=== PATIENT | male | born 1960 | race Caucasian/White ===

== ENCOUNTER 2023-03-22 10:12 | Outpatient (CLI) | payer OTHER, SELFPAY ==
[2023-03-22 18:01] LABS: Basophils Percent Auto 0.6 % (0.2-1.2); Eosinophils Absolute Auto 0.1 K/mm3 (0-0.3); Eosinophils Percent Auto 1.8 % (0-4.4); Hematocrit 44.6 % (42.0-52.0); Hemoglobin 14.3 g/dL (14.0-18.0); Immature Granulocyte Absolute 0.02 K/mm3 (0.00-0.031); Immature Granulocyte Percent A 0.3 % (0-0.5); Mean Corpuscular HGB Conc 32.1 g/dl (32-36); Mean Corpuscular Hemoglobin 31.2 pg (26-34); Mean Corpuscular Volume 97.4 fl (80-100); Mean Platelet Volume 11.4 fl (7.4-10.4); Monocytes Absolute Auto 0.6 K/mm3 (0.1-0.6); Monocytes Percent Auto 9.9 % (2.6-8.5); Neutrophils Percent Auto 63.4 % (45.5-73.1); Platelet Count Result 187 k/mm3 (150-375); Red Blood Count 4.58 M/mm3 (4.6-6.20); Red Cell Distribution Width 12.3 % (11.5-14.5); White Blood Count 6.3 K/mm3 (4.5-10.0)
[2023-03-22 18:26] LABS: Alanine Aminotransferase 53 U/L (6-50); Albumin Level 4.1 g/dL (3.5-5.1); Alkaline Phosphatase 84 U/L (38-126); Anion Gap 5 mmol/L (8-16); Aspartate Amino Transferase 56 U/L (17-59); Bilirubin,Total 1.6 mg/dL (0.2-1.3); Blood Urea Nitrogen 20 mg/dL (9-20); Calcium 9.8 mg/dL (8.4-10.2); Carbon Dioxide 31 mmol/L (22-30); Chloride 101 mmol/L (98-107); Cholesterol 219 mg/dL (0-200); Estimated Glomerular Filt Rate > 60; Glucose 102 mg/dL (65-110); HDL Direct 59 mg/dL; Potassium 4.6 mmol/L (3.4-5.0); Sodium 137 mmol/L (137-145); Triglycerides 97 mg/dL (<150)
[2023-03-22 18:39] LABS: LDL Cholesterol Direct 115 mg/dL
[2023-03-22 18:57] LABS: Prostate Specific Antigen 0.8 ng/mL (< OR = 4.0)
[2023-03-22 19:31] LABS: Hemoglobin A1C 5.4 % (<5.7)
== END 2023-03-22 10:13 | disposition home or self-care (01) ==
LOC: ANHGOSHLAB 10:13
PROVIDERS: PCP Emergency Medicine; Visit Provider Emergency Medicine
DX: E78.00 Pure hypercholesterolemia, unspecified (principal); Z13.0 Encounter for screening for diseases of the blood and blood-forming organs and certain disorders involving the immune mechanism; Z12.5 Encounter for screening for malignant neoplasm of prostate
CPT/HCPCS: 36415; 80053; 80061; 83036; 84153; 85025; G0103

== ENCOUNTER 2023-06-01 00:39 | Day surgery (SDC) | payer OTHER, SELFPAY ==
[2023-05-17 11:08] VITALS: BMI 25.7
[2023-06-01 07:17] VITALS: BP 120/84; PULSE 52; RESP 18; TEMP 36.3; O2SAT 100
[2023-06-01] MEDS: LACTATED RINGERS 1,000 ML 150 ML IV CONT (07:20)
[2023-06-01 07:52] VITALS: BMI 26.6
--- NOTE | 2023-06-01 08:23 | PM.HPGS ---
History of Present Illness History of Present Illness Consent: Risks, benefits, and alternatives have been discussed and questions answered. Patient agrees to proceed with procedure. Chief complaint: Personal hx of colon polyps Narrative: Adriel Moran is a 63 year old male here for colonoscopy, last one 5 years ago. He had polyp in his first colonoscopy Review of Systems Review of Systems: All systems reviewed & are unremarkable except as noted in HPI and below PMFSH Family History Family History Father Depression Grandparent Lung cancer Social History Social History Smoking status: Never smoker Second hand tobacco smoke exposure: No Alcohol intake: current Alcohol use details: glass of wine not everyday use Substance use: never Do You Feel Safe in your Home?: Yes Lack of Transportation: No Lack of Food: Never True Current Housing: I Have Housing Concerned About Future Housing: No Difficulty Paying Gas/Electric Bills: No Difficulty Paying for Meds: No Currently Unemployed: No Education: Bachelor's Degree Difficulty w/ Childcare or Family Care: No Living arrangements: with family Additional living arrangements comments: with Occupation/Education: occupation Gender identity (if verbalized by the patient): Male Sexual Orientation (if Verbalized by the Patient): Straight or Heterosexual Spiritual care concerns: No Agree to blood products: Yes Meds Home Medications and Allergies Home Medications Medication Instructions Recorded Confirmed Type turmeric 400 mg capsule 400 mg PO DAILY 05/17/23 06/01/23 History Allergies Allergy/AdvReac Type Severity Reaction Status Date / Time No Known Allergies Allergy Verified 05/17/23 11:05 Vital Signs Vital Signs - 24 hr 06/01/23 07:17 Temperature 97.3 F L Pulse Rate 52 L Respiratory Rate 18 Blood Pressure 120/84 Pulse Oximetry 100 Oxygen Delivery Room Air Exam Const: General: comfortable and no acute distress HENMT: Face/Nose/Sinus: Normal nares present Eyes: General: appearance normal, both eyes and all related structures Neck: Neck: no JVD Resp: Auscultation: clear to auscultation bilaterally Cardio: Rate: regular rate Rhythm: regular rhythm GI: Inspection: non-distended GI Palp: Yes Soft to palpation Skin: General skin exam: normal color Neuro: General: gait normal Speech: normal speech Extrem: General: normal to inspection Psych: Mental Status: mental status grossly normal Assessment and Plan Assessment and plan (1) History of colon polyps: Code(s): Z86.010 - Personal history of colonic polyps Status: Acute Assessment and Plan: colonoscopy
[2023-06-01 08:36] VITALS: BP 97/44; PULSE 48; RESP 18; O2SAT 99
[2023-06-01 08:46] VITALS: BP 98/55; PULSE 46; RESP 18; O2SAT 99
[2023-06-01 08:56] VITALS: BP 100/56; PULSE 48; RESP 18; O2SAT 100
--- NOTE | 2023-06-09 09:33 | WPDANESEPPF ---
Anes - Initial Pre Proc Eval Procedure: Operation Date: 06/01/23 08:30 Proposed Procedures p Screening Colonoscopy - Santy West MD Date/Time: 06/09/23 09:33 Surgeon: Santy West MD Pre Op Diagnosis: Personal hx of colon polyps Patient Data Age: 63 Gender: M Height: 1.83 m Weight: 89.3 kg Last Vital Signs Temp 97.3 F L 06/01/23 07:17 Pulse 48 L 06/01/23 08:56 Resp 18 06/01/23 08:56 BP 100/56 L 06/01/23 08:56 Pulse Ox 100 06/01/23 08:56 O2 Del Method Room Air 06/01/23 08:56 Allergies Allergy/AdvReac Type Severity Reaction Status Date / Time No Known Allergies Allergy Verified 05/17/23 11:05 Home Medications Medication Instructions Recorded Confirmed Type turmeric 400 mg capsule 400 mg PO DAILY 05/17/23 06/01/23 History Patient hx anesthesia problems: none Family hx anesthesia problems: none Results Review: All pre-operative results and documents have been reviewed as part of the pre-operative evaluation. [facility] Family History Family History Father Depression Grandparent Lung cancer Social History Social History Smoking status: Never smoker Second hand tobacco smoke exposure: No Alcohol intake: current Alcohol use details: glass of wine not everyday use Substance use: never Do You Feel Safe in your Home?: Yes Lack of Transportation: No Lack of Food: Never True Current Housing: I Have Housing Concerned About Future Housing: No Difficulty Paying Gas/Electric Bills: No Difficulty Paying for Meds: No Currently Unemployed: No Education: Bachelor's Degree Difficulty w/ Childcare or Family Care: No Living arrangements: with family Additional living arrangements comments: with Occupation/Education: occupation Gender identity (if verbalized by the patient): Male Sexual Orientation (if Verbalized by the Patient): Straight or Heterosexual Spiritual care concerns: No Agree to blood products: Yes Anes - Eval Final PreProcedure Day of Procedure 06/09/23 09:33 Patient weight: overweight Heart: regular rate and rhythm Lungs: clear to auscultation Airway: Mallampati scale class II Neurological: alert and oriented Last oral intake: >/= 8 hours ASA classification: II Emergent: no Anesthetic plan: proceed Anesthesia type and monitoring: general GIVS and standard monitoring Results Review: All pre-operative results and documents have been reviewed as part of the pre-operative evaluation. Informed Consent: The patient's anesthetic plan and its attendant risks and benefits were discussed with the patient/family/POA. Questions were solicited and answers provided to the satisfaction of the patient/family/POA.
== END 2023-06-01 09:02 | disposition home or self-care (01) ==
PROVIDERS: PCP Emergency Medicine; Visit Provider Internal Medicine Gastroenterology
PROC: 0DJD8ZZ Inspection of Lower Intestinal Tract, Via Natural or Artificial Opening Endoscopic (ICD-10-PCS; CPT 45378; principal; 2023-06-01 08:30)
DX: Z12.11 Encounter for screening for malignant neoplasm of colon (principal); K64.8 Other hemorrhoids; K57.30 Diverticulosis of large intestine without perforation or abscess without bleeding; Z86.010 Personal history of colon polyps; Z80.1 Family history of malignant neoplasm of trachea, bronchus and lung
CPT/HCPCS: 45378; J2704; J7120

== ENCOUNTER 2024-10-16 07:52 | Outpatient (CLI) | payer BC, SELFPAY ==
--- OUTSIDE RECORDS SUMMARY | 2024-10-16 07:58 | XMS_ITS | Patient Health Record ---
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 DOMINIC GRACIA Primary Care Provider Allergies No Known Allergies Reason For Referral No Information Medications Medication SIG (Take, Route, Fr equency, Duration) Notes Start Date End Date Status FISH OIL 1 tab Oral Daily Act rebecca Vitamin B12 100 MCG Orally Daily Active Nasacort AQ PRN Not-Taki ng Emergen-C Blue - Orally Daily Not-Taking Azelastine HCl Not-T aking Vitamin B Plus+ Not- Taking Singulair Not-Taking Turmeric 400 MG as directed Orally Active Vitamin C 500 MG as directed Orally Active Immunizations Vaccine Route Administration Date Status Comme nts TB SKIN TEST (PPD) ID Intradermal 07/04/2016 Administered TDAP (BOOSTRIX) IM Intramuscular 11/01/2021 Administered zFLU 4V (FLUARIX QUAD), 6 MO+, NO PRES - ALL PAYORS IM Intramuscular 11/01/2021 Administered zFLU 4V (FLUZONE QUAD), 6MO+ (0.5 ML), NO PRES - ALL PAYORS IM Intramuscular 01/29/2019 Administered Social History Tobacco Use: Social History Observation Description Date Details (start date - stop date) Former Smoker NA - NA Tobacco Status: Question Answer Notes Patient is a former smoker [facility] Section Notes: Moved to [place], [place] from [place], [place] 2014. Previously from [place], [place]oved to [place], [place] from [place] 2014[place] 2014. [place] 2014. [place] 2014[place]. [place]. Previously from [place] Problems Problem Type SNOMED Code ICD Code Onset Dates Problem Status W/U Status Risk Notes Problem 07343582 Dyspnea on exertion (R06.09) Active confirmed Problem 21146186 Exercise-induced asthma (J45.990) Active confirmed Problem 87725102 Sinus bradycardia (R00.1) Active confirmed Problem 527873247 Routine health maintenance (Z00.00) Active confirmed Problem 912581148 Left ventricular dilatation (I51.7) Active confirmed Problem 169403597 Seasonal allergic rhinitis, unspecified chronicity, unspecified trigger (J30.2) Active confirmed Plan Of Treatment No Information Insurance Providers Payer Name Payer Address Payer Phone Subscriber Number Group Number Insured Name Patient Relationship to Insured Coverage Start Date Coverage End Date [employer] OAP/[id number] [place], [place] [id number] [phone] [id number] Adriel Moran Self - patient is the insured Medical (General) History Medical History History ICD Code Pulmonology: ? @ [facility] Colonoscopy: fall in [place]; no rmal per pt Environmental allergies Exercise induced asthma Seasonal Allergies Surgical History Surgery Date(Month/Year) knee surgery left 08/2017 broken finger 2008 tonsillectomy 1973 Hospitalization History Reason Date(Month/Year) see surgical history
--- OUTSIDE RECORDS SUMMARY | 2024-10-16 07:58 | XMS_ITS | Patient Health Record ---
Author Organization [facility] Address [address] [place] [address] Reason For Referral No Information Medications Medication SIG (Take, Route, Frequency, Duration) Notes Start Date End Date Status Vimovo 500-20 MG Tablet Delayed Release 1 tablet before meals Orally Twice a day; Duration: 30 days 04/03/2017 Active ProAir HFA *Reorder from Codon Devicesspan for eRx and Interaction Alerts* Active Rheumate - Capsule as directed Orally twice daily; Duration: 30 days 11/28/2017 Active Nasacort AQ *Reorder from Transmit Promoan for eRx and Interaction Alerts* Active Singulair *Pick strength-f orm from Medispan for eRX* Active Breo Ellipta *Pick strength-f orm from Medispan for eRX* Active Gelsyn-3 16.8 MG/2ML Solution Prefilled Syringe 2 ml Intra-articular one weekly to left knee x 3 weeks; Duration: 21 days 11/28/2017 Active Immunizations Vaccine Route Administration Date Status Comme nts Flucelvax Quadrivalent, pres. free Unknown 04/03/2017 Refused Immunization Giv en by from source eCW:: Social History Social History Additional Details Category Social Info Options Details Migrated Social History Tobacco Use: (Tobacco Use/Smoking): Smoking Status:: nonsmoker Problems Problem Type SNOMED Code ICD Code Onset Dates Problem Status W/U Status Risk Notes Problem Chondromalacia of left knee (8447109257484424 2) Chondromalacia, left knee (M94.262) Active confirmed Problem Acute pain of left knee (M25.562) Active confirmed Problem Osteoarthritis of knee (863860921) Primary osteoarthritis of left knee (M17.12) Active confirmed Problem Enthesopathy of knee (81613661) Pes anserine bursitis (M70.50) Active confirmed Problem Knee joint effusion (541180620) Knee effusion, left (M25.462) Active confirmed Problem Dyskinesia (finding) (4984203) Scapular dyskinesis (G25.89) Active confirmed Problem Osteoarthritis of knee (006921001) Patellofemoral arthritis of left knee (M17.12) Active confirmed Problem Acute tear of medial meniscus of left knee (disorder) (8610820892131453 7) Other tear of medial meniscus of left knee as current injury, initial encounter (S83.242A) Active confirmed Problem Other old tear o f medial meniscus of left knee (M23.204) Active confirmed Problem Postprocedural states (982737006) History of medial meniscus repair of left knee (Z98.890) Active confirmed Problem Ganglion of left knee (317674863085136) Ganglion of left knee (M67.462) Active confirmed Problem Athletic heart syndrome (810698401) 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 Mario Carty i 2017
[2024-10-16 13:34] LABS: Hematocrit 43.9 % (42.0-52.0); Hemoglobin 14.0 g/dL (14.0-18.0); Immature Granulocyte Percent A 0.2 % (0-0.5); Lymphocytes Absolute Auto 1.42 K/mm3 (0.9-3.2); Mean Corpuscular HGB Conc 31.9 g/dl (32-36); Mean Corpuscular Hemoglobin 31.1 pg (26-34); Mean Corpuscular Volume 97.6 fl (80-100); Nucleated Red Blood Cells Absolute Auto 0.000 K/mm3 (0.0-0.012); Nucleated Red Blood Cells Perc 0.0 % (0.0-0.2); Platelet Count Result 198 k/mm3 (150-375); Red Blood Count 4.50 M/mm3 (4.6-6.20); White Blood Count 6.1 K/mm3 (4.5-10.0)
[2024-10-16 13:44] LABS: Alanine Aminotransferase 32 U/L (6-50); Albumin Level 4.2 g/dL (3.5-5.1); Alkaline Phosphatase 82 U/L (38-126); Anion Gap 6 mmol/L (4-12); Aspartate Amino Transferase 60 U/L (17-59); Bilirubin,Total 2.3 mg/dL (0.2-1.3); Blood Urea Nitrogen 20 mg/dL (9-20); Calcium 9.9 mg/dL (8.4-10.2); Carbon Dioxide 28 mmol/L (22-30); Chloride 103 mmol/L (98-107); Cholesterol 245 mg/dL (0-200); Estimated Glomerular Filt Rate > 60; Glucose 85 mg/dL (65-110); HDL Direct 64 mg/dL; Potassium 4.0 mmol/L (3.4-5.0); Sodium 137 mmol/L (137-145); Total Protein 7.1 g/dL (6.3-8.2); Triglycerides 75 mg/dL (<150)
[2024-10-16 18:21] LABS: Prostate Specific Antigen 1.1 ng/mL (< OR = 4.0)
== END 2024-10-16 07:53 | disposition home or self-care (01) ==
LOC: ANHGOSHLAB 07:55
PROVIDERS: PCP Family Medicine; Visit Provider Family Medicine
DX: E78.5 Hyperlipidemia, unspecified (principal); Z12.5 Encounter for screening for malignant neoplasm of prostate
CPT/HCPCS: 36415; 80053; 80061; 84153; 85025; G0103